=== PATIENT | male | born 1960 | race Caucasian/White ===

== ENCOUNTER 2025-05-22 09:56 | Observation (INO) | payer MEDICARE, OTHER ==
--- NOTE | 2025-05-22 10:16 | ED ---
General Adult HPI - General Chief complaint: Altered Mental Status Stated complaint: AMS Time Seen by Provider: 05/22/25 09:58 Source: patient, police, EMS, RN notes reviewed Mode of arrival: EMS Limitations: altered mental status - History of Present Illness Initial comments: Patient is a 65-year-old male presenting to the emergency department from custodial for reported difficulty following commands. Patient states he has history of multiple strokes with similar symptoms. Patient admits to feeling confused however states this has been a long time, unclear how long. Patient does not have any new area of weakness. Patient states his arm and leg weakness is chronic. Patient does present from custodial. Patient states he does not always know where he is or what year it is. - Related Data Allergies Allergy/AdvReac Type Severity Reaction Status Date / Time No Known Allergies Allergy Verified 05/22/25 09:57 Review of Systems ROS Statement: Those systems with pertinent positive or pertinent negative responses have been documented in the HPI. ROS Other: All systems not noted in ROS Statement are negative. Constitutional: Denies: fever Eyes: Denies: eye pain ENT: Denies: ear pain Respiratory: Denies: dyspnea Cardiovascular: Denies: chest pain Endocrine: Denies: fatigue Gastrointestinal: Denies: abdominal pain Neurological: Reports: as per HPI Past Medical History Past Medical History: CVA/TIA, Hyperlipidemia, Hypertension Past Surgical History: Unable to Obtain Smoking Status: Never smoker Past Alcohol Use History: Rare Past Drug Use History: None Reported General Exam Limitations: altered mental status General appearance: alert, in no apparent distress Head exam: Present: atraumatic Eye exam: Present: normal appearance, PERRL, EOMI ENT exam: Present: normal oropharynx Neck exam: Present: normal inspection. Absent: meningismus Respiratory exam: Present: normal lung sounds bilaterally Cardiovascular Exam: Present: regular rate, normal rhythm GI/Abdominal exam: Present: soft. Absent: tenderness Extremities exam: Present: normal inspection, full ROM. Absent: tenderness Neurological exam: Present: alert, other (Patient has lack of effort in following commands) Expanded Neurological exam: Present: protecting the airway Patient oriented to: Absent: place, time Cranial nerves: EOM's Intact: Normal Motor strength exam: RUE: 4, LUE: 4, RLE: 2/1, LLE: 2/1 Eye Response: (4) open spontaneously Motor Response: (6) obeys commands Verbal Response: (4) confused conversation Skin exam: Present: normal color Course Vital Signs 05/22/25 09:58 Temperature 99.1 F Pulse Rate 68 Respiratory 16 Rate Blood Pressure 144/76 O2 Sat by Pulse 100 Oximetry EKG Findings - EKG Results: EKG: interpreted by ERMD (Artifact is present), sinus rhythm, normal axis, nor mal QRS, normal ST/T Medical Decision Making - Medical Decision Making Was pt. sent in by a medical professional or institution (, PA, STRAP CUTTING MACHINE OPERATOR, urgent care, hospital, or care home...) When possible be specific @ -Patient sent from custodial Did you speak to anyone other than the patient for history (EMS, parent, family, police, friend...)? What history was obtained from this source @ -Report from custodial Did you review nursing and triage notes (agree or disagree)? Why? @ -I reviewed and agree with nursing and triage notes Were old charts reviewed (outside hosp., previous admission, EMS record, old EKG, old radiological studies, urgent care reports/EKG's, care home records)? Report findings @ -No old charts were reviewed Differential Diagnosis (chest pain, altered mental status, abdominal pain women, abdominal pain men, vaginal bleeding, weakness, fever, dyspnea, syncope, headache, dizziness, GI bleed, back pain, seizure, CVA, palpatations, mental health, musculoskeletal)? @ -Differential Altered Mental Status: Hypoglycemia, DKA, hypercapnia, ETOH, overdose, CO poisoning, trauma, myxedema coma, HTN encephalopathy, infection, encephalitis, psychosis, intercranial hemorrhage, hepatic encephalopathy, meningitis, CVA, this is not meant to be an all-inclusive list EKG interpreted by me (3pts min.). @ -As above X-rays interpreted by me (1pt min.). @ -Chest x-ray without acute abnormality CT interpreted by me (1pt min.). @ -CT brain shows old infarct U/S interpreted by me (1pt. min.). @ -None done What testing was considered but not performed or refused? (CT, X-rays, U/S, labs)? Why? @ -None What meds were considered but not given or refused? Why? @ -None Did you discuss the management of the patient with other professionals (professionals i.e. , PA, STRAP CUTTING MACHINE OPERATOR, lab, RT, psych nurse, social media senior associate, offshore wind operations manager, teacher, grant officer, piano case maker)? Give summary @ -Case was discussed with practitioner Smooth who will admit [facility], covering hospital call Was smoking cessation discussed for >3mins.? @ -No Was critical care preformed (if so, how long)? @ -No Were there social determinants of health that impacted care today? How? (Homelessness, low income, unemployed, alcoholism, drug addiction, transportation, low edu. Level, literacy, decrease access to med. care, custodial, rehab)? @ -No Was there de-escalation of care discussed even if they declined (Discuss DNR or withdrawal of care, Hospice)? DNR status @ -No What co-morbidities impacted this encounter? (DM, HTN, Smoking, COPD, CAD, Cancer, CVA, ARF, Chemo, Hep., AIDS, mental health diagnosis, sleep apnea, morbid obesity)? @ -History of stroke Was patient admitted / discharged? Hospital course, mention meds given and route, prescriptions, significant lab abnormalities, going to OR and other pertinent info. @ -Patient presents with altered mental status and concern for stroke. No definitive diagnosis of stroke on evaluation or workup. Patient will be admitted with neuro consult. Patient and officer are updated. Admission orders written. Undiagnosed new problem with uncertain prognosis? @ -No Drug Therapy requiring intensive monitoring for toxicity (Heparin, Nitro, Insulin, Cardizem)? @ -No Were any procedures done? @ -No Diagnosis/symptom? @ -Altered mental status Acute, or Chronic, or Acute on Chronic? @ -Acute Uncomplicated (without systemic symptoms) or Complicated (systemic symptoms)? @ -Default Side effects of treatment? @ -No Exacerbation, Progression, or Severe Exacerbation? @ -No Poses a threat to life or bodily function? How? (Chest pain, USA, MA, pneumonia, PE, COPD, DKA, ARF, appy, cholecystitis, CVA, Diverticulitis, Homicidal, Suicidal, threat to staff... and all critical care pts) @ -No - Lab Data Result diagrams: 05/22/25 10:33 05/22/25 10:33 Lab Results 05/22/25 05/22/25 05/22/25 Range/Units 10:33 10:33 10:33 WBC 8.41 (4.50-10.00) 10*3/uL RBC 5.30 (4.40-5.60) 10*6/uL Hgb 15.6 (13.0-17.0) g/dL Hct 46.3 (39.6-50.0) % MCV 87.4 (80.0-97.0) fL MCH 29.4 (27.0-32.0) pg MCHC 33.7 (32.0-37.0) g/dL Plt Count 260 (140-440) 10*3/uL MPV 9.7 (9.5-12.2) fL Immature Gran % (Auto) 0.2 % Neutrophils % 65.6 % Lymphocytes % 20.7 % Monocytes % 11.7 % Eosinophils % 1.3 % Basophils % 0.5 % Immature Gran # 0.02 (0.00-0.04) 10*3/uL Neutrophils # 5.52 (1.80-7.70) 10*3/uL Lymphocytes # 1.74 (0.90-5.00) 10*3/uL Monocytes # 0.98 (0.20-1.00) 10*3/uL Eosinophils # 0.11 (0.04-0.35) 10*3/uL Basophils # 0.04 (0.00-0.10) 10*3/uL PT 11.3 (10.0-12.5) sec INR 1.0 (<1.2) APTT 23.6 (22.0-30.0) sec Sodium 138 (137-145) mmol/L Potassium 4.6 (3.5-5.1) mmol/L Chloride 105 (98-107) mmol/L Carbon Dioxide 22 (22-30) mmol/L Anion Gap 11 mmol/L BUN 18 (9-20) mg/dL Creatinine 0.91 (0.66-1.25) mg/dL Est GFR (CKD-EPI)AfAm >90 (>60 ml/min/1.73 sqM) Est GFR (CKD-EPI)NonAf 87 (>60 ml/min/1.73 sqM) Glucose 119 H (74-99) mg/dL POC Glucose (mg/dL) (70-110) mg/dL POC Glu Lithopone Charger ID Calcium 10.0 (8.4-10.2) mg/dL Total Bilirubin 2.1 H (0.2-1.3) mg/dL AST 27 (17-59) U/L ALT 23 (4-49) U/L Alkaline Phosphatase 59 (38-126) U/L Troponin I (0.000-0.034) ng/mL Total Protein 7.1 (6.3-8.2) g/dL Albumin 4.5 (3.5-5.0) g/dL 05/22/25 05/22/25 Range/Units 10:33 11:54 WBC (4.50-10.00) 10*3/uL RBC (4.40-5.60) 10*6/uL Hgb (13.0-17.0) g/dL Hct (39.6-50.0) % MCV (80.0-97.0) fL MCH (27.0-32.0) pg MCHC (32.0-37.0) g/dL Plt Count (140-440) 10*3/uL MPV (9.5-12.2) fL Immature Gran % (Auto) % Neutrophils % % Lymphocytes % % Monocytes % % Eosinophils % % Basophils % % Immature Gran # (0.00-0.04) 10*3/uL Neutrophils # (1.80-7.70) 10*3/uL Lymphocytes # (0.90-5.00) 10*3/uL Monocytes # (0.20-1.00) 10*3/uL Eosinophils # (0.04-0.35) 10*3/uL Basophils # (0.00-0.10) 10*3/uL PT (10.0-12.5) sec INR (<1.2) APTT (22.0-30.0) sec Sodium (137-145) mmol/L Potassium (3.5-5.1) mmol/L Chloride (98-107) mmol/L Carbon Dioxide (22-30) mmol/L Anion Gap mmol/L BUN (9-20) mg/dL Creatinine (0.66-1.25) mg/dL Est GFR (CKD-EPI)AfAm (>60 ml/min/1.73 sqM) Est GFR (CKD-EPI)NonAf (>60 ml/min/1.73 sqM) Glucose (74-99) mg/dL POC Glucose (mg/dL) 113 H (70-110) mg/dL POC Glu Lithopone Charger ID Abby Kidd Calcium (8.4-10.2) mg/dL Total Bilirubin (0.2-1.3) mg/dL AST (17-59) U/L ALT (4-49) U/L Alkaline Phosphatase (38-126) U/L Troponin I <0.012 (0.000-0.034) ng/mL Total Protein (6.3-8.2) g/dL Albumin (3.5-5.0) g/dL Disposition Clinical Impression: Altered mental status Disposition: ADMITTED IP TO THIS HOSP Is patient prescribed a controlled substance at d/c from ED?: No Referrals: None,Stated [Primary Care Provider] - 1-2 days Time of Disposition: 13:21
[2025-05-22 10:41] LABS: Basophils # (A) 0.04 10*3/uL (0.00-0.10); Basophils % (A) 0.5 %; Eosinophils # (A) 0.11 10*3/uL (0.04-0.35); Eosinophils % (A) 1.3 %; HCT 46.3 % (39.6-50.0); HGB 15.6 g/dL (13.0-17.0); Lymphocytes # (A) 1.74 10*3/uL (0.90-5.00); Lymphocytes % (A) 20.7 %; MCH 29.4 pg (27.0-32.0); MCHC 33.7 g/dL (32.0-37.0); MCV 87.4 fL (80.0-97.0); Monocytes # (A) 0.98 10*3/uL (0.20-1.00); Monocytes % (A) 11.7 %; Neutrophils # (A) 5.52 10*3/uL (1.80-7.70); Neutrophils % (A) 65.6 %; Platelet Count 260 10*3/uL (140-440); RBC 5.30 10*6/uL (4.40-5.60); RDW 12.6 % (11.5-14.5); WBC 8.41 10*3/uL (4.50-10.00)
[2025-05-22 10:56] LABS: ALT 23 U/L (4-49); AST 27 U/L (17-59); African American GFR (CKD) >90 (>60 ml/min/1.73 sqM); Albumin 4.5 g/dL (3.5-5.0); Alkaline Phosphatase 59 U/L (38-126); Anion Gap 11 mmol/L; Blood Urea Nitrogen 18 mg/dL (9-20); Calcium 10.0 mg/dL (8.4-10.2); Carbon Dioxide 22 mmol/L (22-30); Chloride 105 mmol/L (98-107); Glucose 119 mg/dL (74-99); Non-African American GFR(CKD) 87 (>60 ml/min/1.73 sqM); Potassium 4.6 mmol/L (3.5-5.1); Sodium 138 mmol/L (137-145); Total Protein 7.1 g/dL (6.3-8.2)
[2025-05-22 11:03] LABS: INR 1.0 (<1.2); Partial Thromboplastin Time 23.6 sec (22.0-30.0); Prothrombin Time 11.3 sec (10.0-12.5)
--- NOTE | 2025-05-22 11:14 | CT ---
EXAMINATION TYPE: CT brain wo con DATE OF EXAM: 05/22/2025 11:07 AM COMPARISON: None. CLINICAL INDICATION: Male, 65 years old with history of Altered mental status, CONFUSION/NO TRAUMA TECHNIQUE: CT of the brain is performed utilizing 3 mm thick sections through the posterior fossa and 3 mm thick sections through the remaining calvarium. Study is performed within 24 hours of arrival to the hospital. Contrast used: mL of , (none if empty) CT DLP: 1141 mGycm, Automated exposure control for dose reduction was used. FINDINGS: No abnormal hyperdensity is present to suggest an acute intracranial hemorrhage. No mass lesion is evident. No acute infarcts are evident. There is an area of hypodensity through the medial left occipital lobe may be an old infarct. No mass effect is evident. Ventricles and sulci are mildly prominent for the patient age. Paranasal sinuses and mastoid air cells within the [id number] are clear. IMPRESSION: 1. No acute intracranial process. Follow up MRI can be performed as clinically indicated. 2. Suspected old left medial occipital lobe infarct with mild atrophy. [facility], , 05/22/2025 11:11 AM
--- NOTE | 2025-05-22 11:18 | XR ---
EXAMINATION TYPE: XR chest 2V DATE OF EXAM: 05/22/2025 11:10 AM COMPARISON: None. CLINICAL INDICATION: Male, 65 years old with history of altered mental status, TECHNIQUE: XR chest 2V view(s) obtained. Costophrenic angle is not well-visualized. FINDINGS: The heart size is normal. The pulmonary vasculature is normal. The lungs are clear. IMPRESSION: 1. No acute pulmonary process. [facility], , 05/22/2025 11:16 AM
[2025-05-22 11:55] LABS: Glucose,Whole Blood 113 mg/dL (70-110)
[2025-05-22] MEDS ORDERED: NALOXONE 0.4 MG/ML 1 ML VIAL IV PRN (13:21)
[2025-05-22] MEDS ORDERED: ACETAMINOPHEN TAB 325 MG TAB PO PRN (13:21)
[2025-05-22] MEDS ORDERED: DEXTROSE 50% SYRINGE 50 ML IVP PRN ×2 (15:22)
--- NOTE | 2025-05-22 16:29 | P.HPIM ---
History of Present Illness H&P Date: 05/22/25 Patient is a 65-year-old male with PMH of prior CVA, HTN, history of heart murmur who presents to the ED for altered mental status. Patient states for the last 2 days he has been experiencing dizziness, tinnitus and weakness. He states the dizziness will resolve if he closes his eyes for a few seconds. He also notes the tinnitus is intermittent and will usually last 1 to 2 hours. Of note he does have chronic right-sided weakness and paresthesia from previous strokes. He also notes headaches for the last month that he describes as a pressure that will resolve once he massages his head. He also reports neck pain that started today. Patient also notes intermittent left hand numbness that he states is chronic. He also endorses blurry vision, which he also reports is chronic. Patient also mentions he has been spitting up blood for the last month and the public safety police verified that he was splitting up blood in the bathroom earlier. Patient states he has been eating and drinking well. He notes he is having regular bowel movements and had a bowel movement today. He denies chest pain, shortness of breath, abdominal pain, fevers, chills, dysuria. ED vitals: T99.1, HR 68, RR 16, BP 144/76, 100% on RA ED labs: WBC 8.41, hemoglobin 15.6, platelets 260, PT 11.3, PTT 23.6, sodium 138, potassium 4.6, BUN 18, creatinine 0.91, calcium 10.0, total bilirubin 2.1, AST 27, ALT 23, troponin <0.012 ED imaging: CT brain shows no acute intracranial process, suspected old left medial occipital lobe infarct with mild atrophy. CXR shows no acute pulmonary process. EKG independently interpreted -artifact present, sinus rhythm 63 bpm, normal axis. ED documentation reviewed and case discussed with ED provider. Review of systems: Pertinent positives and negatives as discussed in HPI, a complete review of systems was performed and all other systems are negative. PMHx: CVAs (x4), Type 2 diabetes, heart murmur PSHx: Right hand surgery, eye surgery Meds: Lisinopril, metoprolol tartrate, eliquis, Buspar, Lipitor Social Hx: Lives with mother. Denies alcohol, smoking, recreational drugs ALL: No known drug allergies Physical examination: Vital signs reviewed General: non toxic, no distress, appears at stated age, normal weight Derm: no unusual rashes/lesions, warm Head: atraumatic, normocephalic, symmetric Eyes: EOMI, anicteric sclera, pupils equal round reactive to light ENT: Nose and ears atraumatic Mouth: No lip lesion, mucus membranes moist Cardiovascular: S1S2 reg, no murmur, no edema Lungs: CTA bilateral, no rhonchi, no rales, no accessory muscle use Abdominal: soft, nontender to palpation, no guarding Ext: muscle strength 5 out of 5 in all 4 extremities grossly, no gross muscle atrophy Neuro: CN II-XI grossly intact, NIH score 0, right-sided weakness from previous CVAs. Psych: Alert, oriented to person, place, and time Assessment/Plan: Dizziness Tinnitus Weakness History of CVAs - Differential diagnosis include: Vertigo, Mnire's, BPPV, otolith, labyrinthitis, CVA, migraines, complex migraines, cluster migraines, orthostatic hypotension - Ordered lipid panel, TSH and A1c level - Order orthostatic vitals - Started telemonitoring - Neurology consulted, recs appreciated - Will hold on ordering MRI based on neurology recommendations Hyperbilirubinemia - Differential: Gilbert's, hemolytic anemia, cholestasis, hepatitis - Ordered fractioned bilirubin - Will continue to monitor Chronic: Diabetes type 2 - low-dose sliding scale, monitor for hypoglycemia HTN - continue home lisinopril 20 mg daily, metoprolol tartrate 25 mg BID, Prior CVAs - continue Eliquis Anxiety -continue home BuSpar 15 mg daily F: NS 50 cc/h E: Will monitor and replenish as needed N: Heart healthy diet A: Ambulating independently DVT prophylaxis: Eliquis The patient is admitted with an anticipated less than 2 midnight stay for evaluation of dizziness, tinnitus, weakness. CODE STATUS: Full code Discussed with: Dr. Samano Anticipated discharge place: Home Rigoberto Tolliver DO PGY-1 IM Dictation was produced using [employer] dictation software. Please excuse any grammatical, word or spelling errors. I saw and evaluated the patient during the bueno and critical portions of this encounter, and discussed the case in detail with the resident author of this note, I agree with the Assessment and Plan, and my changes, if any, are highlighted in blue. Past Medical History Past Medical History: CVA/TIA, Hyperlipidemia, Hypertension Past Surgical History: Unable to Obtain Smoking Status: Never smoker Past Alcohol Use History: Rare Past Drug Use History: None Reported Medications and Allergies Home Medications Medication Instructions Recorded Confirmed Type Apixaban [Eliquis] 5 mg PO BID 05/22/25 05/22/25 History Atorvastatin Calcium [Lipitor] 40 mg PO HS 05/22/25 05/22/25 History Metoprolol Tartrate [Lopressor] 25 mg PO BID 05/22/25 05/22/25 History busPIRone HCL [Buspirone HCl] 15 mg PO DAILY 05/22/25 05/22/25 History lisinopriL [Zestril] 20 mg PO DAILY 05/22/25 05/22/25 History Allergies Allergy/AdvReac Type Severity Reaction Status Date / Time No Known Allergies Allergy Verified 05/22/25 13:47 Physical Exam Osteopathic Statement: *. No significant issues noted on an osteopathic structural exam other than those noted in the History and Physical/Consult. Vitals: Vital Signs Temp Pulse Resp BP Pulse Ox 05/22/25 09:58 99.1 F 68 16 144/76 100 Intake and Output 05/21/25 05/22/25 05/22/25 22:59 06:59 14:59 Other: Weight 88.451 kg Results CBC & Chem 7: 05/22/25 10:33 05/22/25 10:33 Labs: Abnormal Lab Results - Last 24 Hours (Table) 05/22/25 05/22/25 Range/Units 10:33 11:54 Glucose 119 H (74-99) mg/dL POC Glucose (mg/dL) 113 H (70-110) mg/dL Total Bilirubin 2.1 H (0.2-1.3) mg/dL
[2025-05-22 16:53] LABS: Glucose,Whole Blood 94 mg/dL (70-110)
[2025-05-22] MEDS: INSULIN LISPRO (HumaLOG) 100 UNIT/ML 10 mL VL SQ SCH (16:53)
[2025-05-22 17:14] LABS: Bilirubin,Unconjugated 1.7 mg/dL (0.0-1.1)
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
[2025-05-22] MEDS: NON FORMULARY DRUG IV ONE (19:47)
--- NOTE | 2025-05-22 20:39 | US ---
EXAMINATION TYPE: US carotid duplex BILAT DATE OF EXAM: 05/22/2025 COMPARISON: NONE CLINICAL INDICATION: Male, 65 years old with history of CVA; CVA Additional History: .... TECHNIQUE: Grayscale, color Doppler and spectral Doppler evaluation of the bilateral carotid systems and vertebral arteries. Indirect Doppler criteria was utilized. FINDINGS: EXAM MEASUREMENTS: RIGHT: Peak Systolic Velocity (PSV) cm/sec ----- Right CCA: 107 ----- Right ICA: 96.1 ----- Right ECA: 159 ICA/CCA ratio: 0.9 RIGHT: End Diastole cm/sec ----- Right CCA: 16.2 ----- Right ICA: 13.6 ----- Right ECA: 0 LEFT: Peak Systolic Velocity (PSV) cm/sec ----- Left CCA: 93 ----- Left ICA: 128 ----- Left ECA: 174 ICA/CCA ratio: 1.4 LEFT: End Diastole cm/sec ----- Left CCA: 9.5 ----- Left ICA: 25.6 ----- Left ECA: 0 VERTEBRALS (direction of flow): Right Vertebral: Antegrade Left Vertebral: Antegrade Rhythm: Normal RESIDENTIAL LIVING ASSISTANT NOTES: No significant stenosis seen Color Doppler imaging shows patency with blood flow throughout the carotid artery. Spectral waveforms are within normal limits. IMPRESSION: No evidence for hemodynamically significant stenosis. Criteria for Assigning % of Stenosis / Diameter reduction (Estimation based on the indirect measurements of the internal carotid artery velocities (ICA PSV). 1. Normal (no stenosis)=ICA PSV < 180 cm/s: ratio < 2.0: ICA EDV<40 cm/s. 2. Less than 50% stenosis=ICA PSV < 180 cm/s: ratio < 2.0: ICA EDV<40 cm/s. 3. 50 to 69% stenosis=ICA PSV of 180 to 230 cm/s: ration 2.0 ? 4.0: ICA EDV 40-100 cm/s. PSV 125-180 cm/sec and ICA/CCA PSV Ratio ? 2.0 is also consistent with 50-69% stenosis 4. Greater than 70% stenosis to near occlusion= ICA PSV > 230 cm/s: ratio > 4.0: ICA EDV > 100 cm/s. 5. Near occlusion= ICA PSV velocities may be low or undetectable: variable ratio and ICA EDV. 6. Total occlusion=unable to detect flow. [facility], , 05/22/2025 8:36 PM
[2025-05-22 21:01] LABS: Glucose,Whole Blood 130 mg/dL (70-110)
[2025-05-22] MEDS: METOPROLOL TARTRATE 25 MG TAB PO SCH (21:22)
[2025-05-22] MEDS: ATORVASTATIN 40 MG TAB PO SCH (21:22)
[2025-05-22] MEDS: APIXABAN 5 MG TAB PO SCH (21:22)
[2025-05-22] MEDS: SODIUM CHLORIDE 0.9% 1,000 ML IV SCH (21:57)
[2025-05-22 23:02] LABS: Bilirubin,Urine Negative (Negative); Blood,Urine Negative (Negative); Color,Urine Light Yellow; Glucose,Urine (UA) Negative (Negative); Ketones,Urine Negative (Negative); Leukocyte Esterase,Urine Negative (Negative); Nitrite,Urine Negative (Negative); PH, Urine 5.0 (5.0-8.0); Protein,Urine Negative (Negative); Specific Gravity,Urine 1.024 (1.001-1.035); Urobilinogen,Urine <2.0 mg/dL (<2.0)
[2025-05-22 23:42] LABS: Barbiturate Screen,Urine Not Detected (NotDetected); Benzodiazepines Screen,Urine Not Detected (NotDetected); Opiate Screen,Urine Not Detected (NotDetected); Oxycodone Screen, Urine Not Detected (NotDetected); Phencyclidine Screen,Urine Not Detected (NotDetected); Tricyclic Antidepressant,Urine Not Detected (NotDetected); Urn Cannabinoid Scrn Not Detected (NotDetected)
[2025-05-23 01:53] VITALS: RESP 16
[2025-05-23 05:52] LABS: Glucose,Whole Blood 105 mg/dL (70-110)
[2025-05-23 06:48] LABS: Basophils # (A) 0.04 10*3/uL (0.00-0.10); Basophils % (A) 0.5 %; Eosinophils # (A) 0.13 10*3/uL (0.04-0.35); Eosinophils % (A) 1.5 %; HCT 42.1 % (39.6-50.0); HGB 14.1 g/dL (13.0-17.0); Lymphocytes # (A) 2.14 10*3/uL (0.90-5.00); Lymphocytes % (A) 25.5 %; MCH 29.3 pg (27.0-32.0); MCHC 33.5 g/dL (32.0-37.0); MCV 87.5 fL (80.0-97.0); Monocytes # (A) 0.95 10*3/uL (0.20-1.00); Monocytes % (A) 11.3 %; Neutrophils # (A) 5.11 10*3/uL (1.80-7.70); Neutrophils % (A) 60.8 %; Platelet Count 255 10*3/uL (140-440); RBC 4.81 10*6/uL (4.40-5.60); RDW 12.6 % (11.5-14.5); WBC 8.40 10*3/uL (4.50-10.00)
[2025-05-23 07:04] LABS: ALT 21 U/L (4-49); AST 24 U/L (17-59); African American GFR (CKD) >90 (>60 ml/min/1.73 sqM); Albumin 3.8 g/dL (3.5-5.0); Albumin/Globulin Ratio 1.7; Alkaline Phosphatase 53 U/L (38-126); Anion Gap 9 mmol/L; Blood Urea Nitrogen 17 mg/dL (9-20); Calcium 9.1 mg/dL (8.4-10.2); Carbon Dioxide 22 mmol/L (22-30); Chloride 107 mmol/L (98-107); Globulin 2.2 g/dL; Glucose 111 mg/dL (74-99); Magnesium 2.1 mg/dL (1.6-2.3); Non-African American GFR(CKD) >90 (>60 ml/min/1.73 sqM); Potassium 4.3 mmol/L (3.5-5.1); Sodium 138 mmol/L (137-145); Total Protein 6.0 g/dL (6.3-8.2)
[2025-05-23 10:22] LABS: Cholesterol 145.00 mg/dL (0.00-200.00); HDL Cholesterol 30.90 mg/dL (40.00-60.00); LDL Cholesterol,Calculated 90.1 mg/dL (0.0-131.0); Triglycerides 120.00 mg/dL (0.00-149.00); VLDL Calculation 24.00 mg/dL (5.00-40.00)
[2025-05-23 12:18] LABS: Glucose,Whole Blood 197 mg/dL (70-110)
--- NOTE | 2025-05-23 12:28 | MR ---
EXAMINATION TYPE: MR brain wo con DATE OF EXAM: 05/23/2025 12:08 PM COMPARISON: None. CLINICAL INDICATION: Male, 65 years old with history of Weakness, dizziness, rule out CVA, Dizziness, weakness, r/o CVA TECHNIQUE: Multi planar multi sequence imaging of the brain. FINDINGS: The ventricles, basal cisterns and sulci overlying the cerebral convexities are mildly enlarged. Rem ote insult left occipital lobe. There is evidence of mild periventricular white matter ischemic demyelination. Remote deep white matter insults are also noted. No acute edema is seen on diffusion weighted imaging. There is no evidence for midline shift or mass effect. Acute intracranial hemorrhage or extra-axial collection is not evident. The paranasal sinuses and mastoid air cells are well-aerated. IMPRESSION: Age-related atrophic and chronic small vessel ischemic change. No acute intracranial process at this time. [facility], , 05/23/2025 12:26 PM
[2025-05-23] MEDS: TIRZEPATIDE SQ ONE (13:32)
--- NOTE | 2025-05-23 15:35 | P.PN ---
Subjective Progress Note Date: 05/23/25 Seeing the patient for the first time during this hospital visit. Please refer to Dr. Arana's note for further details it seems that the patient has vague symptoms stating that he is dizzy, lightheaded that he has right sided weakness numbness. According to the nurse he has different complaints and his o rthostatic vitals were checked and were negative. He states that he has right sided weakness and numbness but according to the nurse and the credit risk officer he is able to walk without any assistance. Patient states that he had 4 strokes in the past. Also according to the nurse when she asked the patient the basic question he states that he has been told that he is in the hospital as an example etc. Objective - Vital Signs Vital signs: Vital Signs Temp 98.5 F 05/23/25 15:00 Pulse 72 05/23/25 15:00 Resp 16 05/23/25 15:00 BP 111/71 05/23/25 15:00 Pulse Ox 97 05/23/25 15:00 FiO2 Intake & Output 05/22/25 05/23/25 05/23/25 18:59 06:59 18:59 Intake Total 118 Balance 118 Weight 88.451 kg Intake: Oral 118 Other: Voiding Method Toilet Toilet Urinal Urinal # Voids 1 1 # Bowel Movements 1 - Exam General: Laying in bed and is not in acute distress. Neuro: Limited because of patient's cooperation. Patient is awake alert oriented to self place and time. Is following simple commands. No aphasia Visual laboy is unable to assess because of his cooperation and is not consistent. Extraocular movements intact no nystagmus. No facial weakness. No dysarthria. Motor: Hard to assess individual muscle strength because of his cooperation. He has very poor effort on the right side and has a strength of all 4 but again there is a lot of poor effort. On the left side strength is much better. Sensation states it is decreased over the right side compared to the left side to touch. Reflexes: Hard to assess because of his resistance Cerebellar normal nortft-qx-aowo - Labs CBC & Chem 7: 05/23/25 05:55 05/23/25 05:55 Labs: Abnormal Lab Results - Last 24 Hours (Table) 05/22/25 05/22/25 05/23/25 Range/Units 16:16 20:59 05:55 Glucose (74-99) mg/dL POC Glucose (mg/dL) 130 H (70-110) mg/dL Hemoglobin A1c 6.8 H (<=6.0) % Total Bilirubin 2.1 H (0.2-1.3) mg/dL Unconjugated Bilirubin 1.7 H (0.0-1.1) mg/dL Total Protein (6.3-8.2) g/dL HDL Cholesterol (40.00-60.00) mg/dL 05/23/25 05/23/25 05/23/25 Range/Units 05:55 05:55 12:17 Glucose 111 H (74-99) mg/dL POC Glucose (mg/dL) 197 H (70-110) mg/dL Hemoglobin A1c (<=6.0) % Total Bilirubin 1.6 H (0.2-1.3) mg/dL Unconjugated Bilirubin (0.0-1.1) mg/dL Total Protein 6.0 L (6.3-8.2) g/dL HDL Cholesterol 30.90 L (40.00-60.00) mg/dL Assessment and Plan Assessment: * 65-year-old male admitted with vague neurological symptoms of tinnitus, generalized weakness, confusion, diplopia and tendency to fall. Patient has history of previous CVA, with residual right-sided deficits. On examination has poor effort and showing resistance on examination. This is more functional distorder. MRI Brain is unremarkable for acute or subacute stroke. * Previous history of CVAs * Diabetes, not well-controlled * Hypertension * Hyperlipidemia * Currently incarcerated Plan: MRI of the brain: No acute intracranial process. 2-D echo with bubble study to rule out PFO: pending. Carotid Doppler: No evidence for hemodynamically significant stenosis Fasting a.m. lipid panel: Triglyceride 120, cholesterol 145, LDL is 90 and HDL is 30 Hemoglobin A1c: 6.8 B12: 642, folate: 7 point Optimize control of blood pressure Continue Eliquis 5 mg twice daily Neuro checks every 4 hours Telemetry monitoring rule out any arrhythmia PT, OT, speech therapy DVT prophylaxis: Patient on Eliquis Recommend patient to follow-up with a neurologist as an outpatient within 2 to 3 weeks as well as psychiatrist and therapist also within that timeframe as well. If 2D echo is unremarkable then the patient is cleared from neurology perspective. Time with Patient: Less than 30
[2025-05-23 17:17] LABS: Glucose,Whole Blood 109 mg/dL (70-110)
--- NOTE | 2025-05-23 18:18 | P.PN ---
Subjective Progress Note Date: 05/23/25 Hospital Course: Patient is a 65-year-old male with PMH of prior CVA, HTN, A-fib who presents to the ED for altered mental status. ED vitals were T99.1, HR 68, RR 16, BP 144/76, 100% on RA. Significant ED labs included WBC 8.41, hemoglobin 15.6, platelets 260, PT 11.3, PTT 23.6, sodium 138, potassium 4.6, BUN 18, creatinine 0.91, calcium 10.0, total bilirubin 2.1, AST 27, ALT 23, troponin <0.012. CT b rain shows no acute intracranial process, suspected old left medial occipital lobe infarct with mild atrophy. CXR shows no acute pulmonary process. EKG independently interpreted -artifact present, sinus rhythm 63 bpm, normal axis. Was admitted to the inpatient team for further neurological workup. Lipid panel, TSH and A1c were ordered. Neurology was consulted Subjective: [Patient seen and examined at bedside. Overnight, pt's heart rate was in the 130s and found to be in A-fib and was then given metoprolol tartrate 25mg and approximately 1.5 hours later converted back to normal sinus rhythm. Then this morning while prerounding pt was back in A-fib with RVR. At this time, the nurse has not given the pt's morning meds but gave them shortly after. Pt this morning, while in A-fib with RVR had no complaints of dizziness, PANIAGUA, blurry vision, chest pain, palpitations, abdominal pain or tinnitus. Later in the day, pt notes his dizziness and tinnitus returned. Pertinent positives and negatives as discussed above, a complete review of systems was performed and all other systems are negative. Vitals: Signs Reviewed Physical Exam: General: nontoxic, no distress, appears at stated age Derm: warm, dry, intact Head: atraumatic, normocephalic, symmetric Eyes: EOMI, anicteric sclera Mouth: no lip lesion, mucus membranes moist Cardiovascular: S1 S2 reg, no murmur, rubs, or gallops Lungs: CTA bilateral, no rhonchi, no rales, no accessory muscle use Abdominal: soft, non-tender to palpation Extremities: no gross muscle atrophy, no edema Neuro: Alert, Oriented, CNII-XII grossly intact, gait normal Psych: well appearing, appropriate affect Data Received Today: Pertinent Labs: BBC 8.40, hemoglobin 14.1, sodium 138, potassium 4.3, BUN 17, creatinine 0.84, A1c 6.8, total bilirubin 1.6, triglycerides 120, cholesterol 145, LDL 90.1, HDL 30.9, B12 642, folate 18.7 Imaging: Carotid Doppler ultrasound-no evidence for hemodynamically significant stenosis Brain [id number] atrophic and chronic small vessel ischemic changes. No acute intracranial process at this time Assessment and Plan: Dizziness Tinnitus Weakness History of CVAs - Carotid Doppler ultrasound-no evidence for hemodynamically significant stenosis - Brain [id number] atrophic and chronic small vessel ischemic changes. No acute intracranial process at this time - Differential diagnosis include: Vertigo, Mnire's, BPPV, otolith, labyrinthitis, migraines, complex migraines, cluster migraines, orthostatic hypotension. CVA unlikely at this time - Lipid panel: triglycerides 120, cholesterol 145, LDL 90.1, HDL 30.9 - TSH 2.240, vitamin B12 642, folate 18.7, A1c 6.8 - Orthostatic vitals were within normal limits - Neurology consulted, recommends patient follow-up with neurologist outpatiently in 2 to 3 weeks as well as psychiatrist and therapist - Continue telemonitoring - Echo pending, if unremarkable patient can be discharged Afib with RVR - Hx of A fib per patient - Resumed on Metoprolol and now rate controlled - Eliquis - Currently awaiting echo Hemoptysis - Patient is spitting up blood - CXR on admission was unremarkable with no acute pulmonary process. - Will continue to monitor at this time, if worsens can order respiratory panel, TB testing Hyperbilirubinemia - Differential: Gilbert's, hemolytic anemia, cholestasis, hepatitis - Conjugated bilirubin 0.0, unconjugated bilirubin 1.7, total bilirubin 2.1 - Bilirubin today has decreased to 1.6 - Will continue to monitor, pt asymptomatic at this time. Chronic: Diabetes type 2 - low-dose sliding scale, monitor for hypoglycemia HTN - continue home lisinopril 20 mg daily, metoprolol tartrate 25 mg BID, Prior CVAs - continue Eliquis Anxiety -continue home BuSpar 15 mg daily F: NS 50 cc/h E: Will monitor and replenish as needed N: Heart healthy diet A: Ambulating independently DVT ppx: Eliquis Code status: Full code Anticipated discharge place: Court/law Anticipated discharge time: 24 to 48 hours Rigoberto Tolliver DO PGY-1 IM Dictation was produced using [employer] dictation software. please excuse any gra mmatical, word or spelling errors. I saw and evaluated the patient during the bueno and critical portions of this encounter, and discussed the case in detail with the resident author of this note, I agree with the Assessment and Plan, and my changes, if any, are highlighted in blue. Objective - Vital Signs Vital signs: Vital Signs Temp 98.5 F 05/23/25 15:00 Pulse 72 05/23/25 15:00 Resp 16 05/23/25 15:00 BP 111/71 05/23/25 15:00 Pulse Ox 97 05/23/25 15:00 FiO2 Intake & Output 05/22/25 05/23/25 05/23/25 18:59 06:59 18:59 Intake Total 236 Balance 236 Weight 88.451 kg Intake: Oral 236 Other: Voiding Method Toilet Toilet Urinal Urinal # Voids 1 1 # Bowel Movements 1 - Labs CBC & Chem 7: 05/23/25 05:55 05/23/25 05:55 Labs: Abnormal Lab Results - Last 24 Hours (Table) 05/22/25 05/23/25 05/23/25 Range/Units 20:59 05:55 05:55 Glucose 111 H (74-99) mg/dL POC Glucose (mg/dL) 130 H (70-110) mg/dL Hemoglobin A1c 6.8 H (<=6.0) % Total Bilirubin 1.6 H (0.2-1.3) mg/dL Total Protein 6.0 L (6.3-8.2) g/dL HDL Cholesterol (40.00-60.00) mg/dL 05/23/25 05/23/25 Range/Units 05:55 12:17 Glucose (74-99) mg/dL POC Glucose (mg/dL) 197 H (70-110) mg/dL Hemoglobin A1c (<=6.0) % Total Bilirubin (0.2-1.3) mg/dL Total Protein (6.3-8.2) g/dL HDL Cholesterol 30.90 L (40.00-60.00) mg/dL
[2025-05-23 19:44] LABS: Glucose,Whole Blood 175 mg/dL (70-110)
[2025-05-24 02:07] VITALS: PULSE 68
[2025-05-24 05:47] LABS: Basophils # (A) 0.04 10*3/uL (0.00-0.10); Basophils % (A) 0.5 %; Eosinophils # (A) 0.15 10*3/uL (0.04-0.35); Eosinophils % (A) 1.7 %; HCT 41.6 % (39.6-50.0); HGB 13.6 g/dL (13.0-17.0); Lymphocytes # (A) 2.24 10*3/uL (0.90-5.00); Lymphocytes % (A) 25.3 %; MCH 28.8 pg (27.0-32.0); MCHC 32.7 g/dL (32.0-37.0); MCV 87.9 fL (80.0-97.0); Monocytes # (A) 1.02 10*3/uL (0.20-1.00); Monocytes % (A) 11.5 %; Neutrophils # (A) 5.36 10*3/uL (1.80-7.70); Neutrophils % (A) 60.7 %; Platelet Count 244 10*3/uL (140-440); RBC 4.73 10*6/uL (4.40-5.60); RDW 12.4 % (11.5-14.5); WBC 8.84 10*3/uL (4.50-10.00)
[2025-05-24 05:55] LABS: Glucose,Whole Blood 114 mg/dL (70-110)
[2025-05-24 06:02] LABS: African American GFR (CKD) >90 (>60 ml/min/1.73 sqM); Anion Gap 7 mmol/L; Blood Urea Nitrogen 17 mg/dL (9-20); Calcium 9.3 mg/dL (8.4-10.2); Carbon Dioxide 22 mmol/L (22-30); Chloride 109 mmol/L (98-107); Glucose 121 mg/dL (74-99); Magnesium 2.0 mg/dL (1.6-2.3); Non-African American GFR(CKD) 87 (>60 ml/min/1.73 sqM); Potassium 4.3 mmol/L (3.5-5.1); Sodium 138 mmol/L (137-145)
[2025-05-24 07:24] VITALS: BP 123/78; TEMP 98
[2025-05-24] MEDS ORDERED: LOPERAMIDE 2 MG CAP PO PRN (10:13)
[2025-05-24] MEDS: TIRZEPATIDE SQ ONE (11:34)
[2025-05-24] MEDS ORDERED: TIRZEPATIDE SQ ONE (12:00)
[2025-05-24 12:02] LABS: Glucose,Whole Blood 131 mg/dL (70-110)
--- NOTE | 2025-05-24 14:05 | P.DS ---
Providers Date of admission: 05/22/25 13:22 Expected date of discharge: 05/24/25 Attending physician: Jose Hutchison MD Consults: 05/22/25 13:21 Consult Physician Urgent Consulting Provider: Niharika Arana Consult Reason/Comments: ams Do you want consulting provider notified?: Yes Primary care physician: Stated None Hospital Course: Discharge Diagnosis: Dizziness Tinnitus Weakness Afib with RVR Reported hemoptysis Hyperbilirubinemia Chronic: Diabetes type 2 HTN Prior CVAs Anxiety Hospital Course: Patient is a 65-year-old male with PMH of prior CVA, HTN, A-fib who presents to the ED for altered mental status. ED vitals were T99.1, HR 68, RR 16, BP 144/76, 100% on RA. Significant ED labs included WBC 8.41, hemoglobin 15.6, platelets 260, PT 11.3, PTT 23.6, sodium 138, potassium 4.6, BUN 18, creatinine 0.91, calcium 10.0, total bilirubin 2.1, AST 27, ALT 23, troponin <0.012. CT brain shows no acute intracranial process, suspected old left medial occipital lobe infarct with mild atrophy. CXR shows no acute pulmonary process. EKG independently interpreted -artifact present, sinus rhythm 63 bpm, normal axis. Was admitted to the inpatient team for further neurological workup. Lipid panel, TSH and A1c were ordered. Neurology was consulted Carotid Doppler showed no evidence of hemodynamically significant stenosis. Brain MRI showed age-related atrophic and chronic small vessel ischemic change with no acute intercranial process. While admitted, the patient developed intermittent RVR from his A-fib he was treated with his home metoprolol tartrate 25 mg twice daily and Eliquis 5 mg p.o. twice daily. The patient was discharged with a prescription for loperamide for diarrhea. He was recommended to follow-up with his PCP and trading analyst as well as neurology and psychiatry. Patient seen and examined at bedside. Vital signs reviewed and stable. Physical examination: Vital signs reviewed General: nontoxic, no distress, appears at stated age Derm: warm, dry, intact Head: atraumatic, normocephalic, symmetric Eyes: EOMI, anicteric sclera Mouth: no lip lesion, mucus membranes moist Cardiovascular: Irregularly irregular rhythm, no murmur Lungs: CTA bilateral, no rhonchi, no rales, no accessory muscle use Abdominal: soft, non-tender to palpation Extremities: no gross muscle atrophy, no edema Neuro: Alert, Oriented, CNII-XII grossly intact, gait normal Psych: well appearing, appropriate affect A total of greater than 30 minutes of time were spent preparing this complex discharge summary. Patient was discharged on 05/24/2025. Mauricio Erwin MD PGY-1 TY Dictation was produced using pinion-pins dictation software. please excuse any g rammatical, word or spelling errors. I saw and evaluated the patient during the bueno and critical portions of this encounter, and discussed the case in detail with the resident author of this note, I agree with the Assessment and Plan, and my changes, if any, are highlighted in blue. Plan - Discharge Summary Discharge Rx Participant: Yes New Discharge Prescriptions: New Loperamide [Imodium] 2 mg PO ONCE PRN 2 Days #8 cap MDD 8 mg (4 capsules) PRN Reason: Diarrhea Continue lisinopriL [Zestril] 20 mg PO DAILY Apixaban [Eliquis] 5 mg PO BID Atorvastatin Calcium [Lipitor] 40 mg PO HS Metoprolol Tartrate [Lopressor] 25 mg PO BID busPIRone HCL 15 mg PO DAILY Discharge Medication List Apixaban [Eliquis] 5 mg PO BID 05/22/25 [History] Atorvastatin Calcium [Lipitor] 40 mg PO HS 05/22/25 [History] Metoprolol Tartrate [Lopressor] 25 mg PO BID 05/22/25 [History] busPIRone HCL 15 mg PO DAILY 05/22/25 [History] lisinopriL [Zestril] 20 mg PO DAILY 05/22/25 [History] Loperamide [Imodium] 2 mg PO ONCE PRN 2 Days #8 cap MDD 8 mg (4 capsules) 05/24/25 [Rx] Follow up Appointment(s)/Referral(s): None,Stated [Primary Care Provider] - 1-2 days Onel Mcdaniels MD [STAFF PHYSICIAN] - 1 Week Patient Instructions/Handouts: A-fib (Atrial Fibrillation) (DC), Tinnitus (GEN) Activity/Diet/Wound Care/Special Instructions: Please follow-up with PCP, your trading analyst, neurologist, and psychiatrist. Take your home medications as prescribed. Discharge Disposition: DC/TRANSFER COURT/LAW
[2025-05-25] MEDS ORDERED: MOUNJARO SQ ONE (09:00)
== END 2025-05-24 13:10 ==
LOC: EC 09:56 → EEVIPCON 13:22 → 6NMEDSUR 13:22
PROVIDERS: ADMIT Family Medicine; ATTEND Family Medicine
DX: R42 Dizziness and giddiness (principal); H93.19 Tinnitus, unspecified ear; R53.1 Weakness; H53.2 Diplopia; R29.6 Repeated falls; R41.82 Altered mental status, unspecified; R04.2 Hemoptysis; I10 Essential (primary) hypertension; E78.5 Hyperlipidemia, unspecified; E11.9 Type 2 diabetes mellitus without complications; R17 Unspecified jaundice; F41.9 Anxiety disorder, unspecified; I48.91 Unspecified atrial fibrillation; I69.30 Unspecified sequelae of cerebral infarction; Z79.01 Long term (current) use of anticoagulants; Z79.899 Other long term (current) drug therapy
CPT/HCPCS: 96360; 96361; 99285; 36415; 93005; 80061; 80053 ×2; 80048; 84443; 82607; 82248; 82746; 83735 ×2; 84484; 85025 ×3; 85610; 85730; 81003; 80306; 83036; 71046; 93880; 70450; 70551; G0378 ×3; G0480; 80320